=== PATIENT | male | born 2000 | race Asian ===

== ENCOUNTER 2022-12-12 08:52 | Emergency (ER) | payer BC, MEDICAID ==
[~2022-12-12] VITALS: Ht 170.2 cm; Wt 74.8 kg
[2022-12-12 08:59] VITALS: BP 126/63
--- NOTE | 2022-12-12 09:11 | NUR ---
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
--- NOTE | 2022-12-12 09:28 | NUR ---
22/M PRESENTS TO ED WITH C/O LEFT ANKLE AND FOOT PAIN X3 DAYS. PATIENT STATES HE "ROLLED HIS ANKLE" WHILE PLAYING BASKETBALL, SWELLING AND BRUISING NOTED TO FOOT, DENIES TAKING MEDS FOR PAIN. PATIENT AMBULATORY WITH USE OF PERSONAL CRUTCHES ON ARRIVAL TO ED, PMSC'S INTACT AND WNL, DENIES NUMBNESS OR TINGLING, SENSATION EQUAL BILATERALLY.
[2022-12-12] MEDS ORDERED: KETOROLAC 15 MG/ML VIAL IM ONE (09:45)
[2022-12-12] MEDS ORDERED: IBUP-2213 PO (09:58)
--- NOTE | 2022-12-12 10:14 | NUR ---
Patient discharged with v/s stable. Written and verbal after care instructions ABOUT ANKLE SPRAIN given and explained. Patient alert, oriented and verbalized understanding of instructions. Ambulatory with USE OF CRUTCHES WITH steady gait. All questions addressed prior to discharge. ID band removed. Patient advised to follow up with PMD. Rx of MOTRIN 600MG given. Patient educated on indication of medication including possible reaction and side effects. Opportunity to ask questions provided and answered.
== END 2022-12-12 10:14 | disposition home or self-care (01) ==
LOC: MED 08:52
DX: S93.492A Sprain of other ligament of left ankle, initial encounter (principal); X58.XXXA Exposure to other specified factors, initial encounter; Y93.89 Activity, other specified; Y92.89 Other specified places as the place of occurrence of the external cause; Y99.8 Other external cause status
CPT/HCPCS: 73610; 96372; 99283; J1885; Q0092